=== PATIENT | male | born 1955 | race Two or more races ===

== ENCOUNTER → 2024-11-19 | Outpatient (CLI) | payer OTHER, SELFPAY ==
[2024-11-19 08:35] LABS: Basophils % (Auto) 1 % (0-2.5); Eosinophils # (Auto) 0.3 Thou/mm3 (0.0-0.5); Eosinophils % (Auto) 4 % (0-10); Hematocrit 38.6 % (41.0-53.0); Immature Granulocytes % (Auto) 0 % (0-0); Immature Granulocytes Auto 0.02 Thou/mm3 (0.00-0.00); Lymphocytes # (Auto) 1.4 Thou/mm3 (1.0-4.8); Lymphocytes % (Auto) 21 % (10-50); Mean Corpuscular HGB Conc 33.7 g/dl (31.0-37.0); Mean Corpuscular Volume 95 fL (80-100); Monocytes # (Auto) 0.6 Thou/mm3 (0.0-0.8); Monocytes % (Auto) 9 % (0-12); Neutrophils # (Auto) 4.4 Thou/mm3 (1.8-7.7); Neutrophils % (Auto) 66 % (37-80); Nucleated Red Blood Cell % 0 /100 WBC (0); Platelet Count 173 Thou/mm3 (140-440); RDW Standard Deviation 44.5 fL (35.1-43.9); Red Blood Count 4.06 Miln/mm3 (4.50-5.90); White Blood Count 6.7 Thou/mm3 (3.8-10.6)
[2024-11-19 08:50] LABS: Anion Gap 8 (7-16); BUN/Creatinine Ratio 29 Ratio (12-20); Blood Urea Nitrogen 41 mg/dL (9-23); Carbon Dioxide 23.7 mMol/L (20.0-31.0); Chloride 109 mMol/L (98-107); Creatinine (Component) 1.4 mg/dL (0.6-1.3); Glucose 132 mg/dL (74-106); Glucose Estimated Average 148 mg/dL (80-131); Hemoglobin A1C 6.8 % Hgb (4.8-6.0); Osmolality,Calculated 293 (275-295); Potassium 5.2 mMol/L (3.4-5.1); Sodium 141 mMol/L (136-145); eGFR 55 See Note
[2024-11-19 09:02] LABS: Creatinine MALB Rnd Ur 72 mg/dL (30-125); Microalbumin Creat Ratio 40 mg/gCrea (<30); Microalbumin, Random Urine 29 mg/L (0-300)
== END | disposition home or self-care (01) ==
PROVIDERS: PCP Family Medicine; Referring Provider Family Medicine; Visit Provider Family Medicine
DX: E11.42 Type 2 diabetes mellitus with diabetic polyneuropathy (principal); E11.65 Type 2 diabetes mellitus with hyperglycemia; D50.9 Iron deficiency anemia, unspecified
CPT/HCPCS: 36415; 80048; 82043; 82570; 83036; 85025

== ENCOUNTER → 2025-01-07 | Outpatient (CLI) | payer OTHER, SELFPAY ==
[2025-01-12 07:05] LABS: Fecal Globin Result NOT DETECTED (NOT DETECTED)
== END | disposition home or self-care (01) ==
LOC: SLDO 11:55
PROVIDERS: PCP Family Medicine; Referring Provider Family Medicine; Visit Provider Family Medicine
DX: Z12.11 Encounter for screening for malignant neoplasm of colon (principal); Z12.12 Encounter for screening for malignant neoplasm of rectum
CPT/HCPCS: 82274; G0328

== ENCOUNTER → 2025-05-12 | Outpatient (CLI) | payer OTHER, SELFPAY ==
[2025-05-12 08:46] LABS: Glucose Estimated Average 148 mg/dL (80-131); Hemoglobin A1C 6.8 % Hgb (4.8-6.0)
[2025-05-12 08:54] LABS: Alanine Aminotransferase 18 U/L (10-49); Albumin, Serum 4.4 gm/dL (3.4-4.8); Alkaline Phosphatase 97 U/L (46-116); Anion Gap 10 (7-16); Aspartate Amino Transferase 20 U/L (0-34); BUN/Creatinine Ratio 15 Ratio (12-20); Bilirubin,Direct 0.1 mg/dL (0.0-0.3); Bilirubin,Total 0.4 mg/dL (0.3-1.2); Blood Urea Nitrogen 24 mg/dL (9-23); Calcium 9.2 mg/dL (8.3-10.6); Carbon Dioxide 25.5 mMol/L (20.0-31.0); Cardiac Risk Estimate 3.0 RATIO (4.0-6.7); Chloride 107 mMol/L (98-107); Cholesterol 126 mg/dL (132-200); Creatinine (Component) 1.6 mg/dL (0.6-1.3); Glucose 85 mg/dL (74-106); HDL Cholesterol 42 mg/dL (40-60); LDL Cholesterol,Calculated 62 mg/dL (0-130); Osmolality,Calculated 286 (275-295); Potassium 4.8 mMol/L (3.4-5.1); Sodium 142 mMol/L (136-145); Total Protein 7.2 gm/dL (5.7-8.2); Triglycerides 111 mg/dL (30-150); eGFR 47 See Note
[2025-05-12 08:57] LABS: Creatinine MALB Rnd Ur 99 mg/dL (30-125); Microalbumin Creat Ratio 30 mg/gCrea (<30); Microalbumin, Random Urine 30 mg/L (0-300)
== END | disposition home or self-care (01) ==
LOC: COPL 06:41
PROVIDERS: PCP Family Medicine; Referring Provider Family Medicine; Visit Provider Family Medicine
DX: R80.1 Persistent proteinuria, unspecified (principal); E11.42 Type 2 diabetes mellitus with diabetic polyneuropathy; E78.5 Hyperlipidemia, unspecified
CPT/HCPCS: 36415; 80048; 80061; 80076; 82043; 82570; 83036